=== PATIENT | female | born 1980 | race Two or more races ===

== ENCOUNTER 2022-06-10 19:33 | Emergency (ER) | payer OTHER ==
[~2022-06-10] VITALS: Ht 160 cm; Wt 65.8 kg
[2022-06-10] MEDS ORDERED: NEURONTIN800 MG (20:42)
[2022-06-10] MEDS ORDERED: ETODOLAC200 MG (20:43)
[2022-06-10] MEDS ORDERED: PRILOSEC OTC20 MG (20:43)
[2022-06-10] MEDS ORDERED: OMEPRAZOLE MAGN20 MG (20:43)
== END 2022-06-11 01:34 | disposition home or self-care (01) ==
LOC: ER 19:33
DX: M62.830 Muscle spasm of back (principal); M51.37 Other intervertebral disc degeneration, lumbosacral region

== ENCOUNTER 2022-10-10 16:36 | Emergency (ER) | payer OTHER ==
[~2022-10-10] VITALS: Ht 162.6 cm; Wt 66.7 kg
[~2022-10-10 16:36] MED LIST: ETODOLAC200 MG; NEURONTIN800 MG; OMEPRAZOLE MAGN20 MG; PRILOSEC OTC20 MG
[2022-10-10] MEDS ORDERED: PRENATAL + DHA1 EAC1 PO (17:18)
== END 2022-10-10 21:43 | disposition home or self-care (01) ==
LOC: ER 16:36
DX: O20.8 Other hemorrhage in early pregnancy (principal); Z3A.11 11 weeks gestation of pregnancy; M79.7 Fibromyalgia; M19.90 Unspecified osteoarthritis, unspecified site; N83.291 Other ovarian cyst, right side